=== PATIENT | female | born 1985 | race Caucasian/White ===

== ENCOUNTER 2017-08-12 08:31 | Emergency (ER) | payer OTHER ==
[~2017-08-12] VITALS: Ht 152.4 cm; Wt 55.8 kg
[~2017-08-12 08:31] MED LIST: IBUPROFEN800 MG PO; JUNEL1 EAC1 PO; PHENERGAN-CODE120 ML PO; PRENATAL TABLE1 EAC3 PO; ZOFRAN4 MG PO; ZYRTEC10 M2 PO
[2017-08-12 09:19] LABS: HEMATOCRIT 41.6 % (36.0-46.0); HEMOGLOBIN 14.6 G/DL (11.9-15.5); MCH 33.2 PG (29.0-34.0); MCHC 35.1 G/DL (30.0-36.0); MCV 94.5 FL (83-99); PLATELET COUNT 246 K/uL (156-360); RBC DIS.WIDTH-CV 11.8 % (11.8-14.6); RBC DIS.WIDTH-SD 41.1 % (39-53); WHITE BLOOD COUNT 5.6 K/uL (4.1-10.2)
[2017-08-12 09:26] LABS: D-DIMER ELISA < 150.00 ng/mLDDU (<230)
[2017-08-12 09:28] LABS: CHLORIDE 108 mEq/L (99-109); POTASSIUM 4.3 mEq/L (3.7-5.4); SODIUM 141 mEq/L (136-147)
[2017-08-12 09:30] LABS: GLUCOSE 98 mg/dL (70-99)
[2017-08-12 09:34] LABS: CREATININE 0.8 mg/dL (0.6-1.3); GFR ESTIMATE (CALCULATED) > 59 mL/min/
[2017-08-12 09:35] LABS: UREA NITROGEN (BUN) 10 mg/dL (9-23)
[2017-08-12 09:40] LABS: TROP-I INTERPRETATION NEGATIVE; TROPONIN-I < 0.01 ng/mL (0.0-0.30)
[2017-08-12 09:42] LABS: QUANTITATIVE HCG < 4.0 MIU/ML
[2017-08-12 10:35] LABS: THYROTROPIN (TSH) 2.8 MIU/L (0.4-5.5)
[2017-08-12 10:54] VITALS: BP 123/86
== END 2017-08-12 10:55 | disposition home or self-care (01) ==
LOC: EME 08:31
PROVIDERS: Nurse Practitioner Family
DX: R06.09 Other forms of dyspnea (principal); R00.2 Palpitations; R00.1 Bradycardia, unspecified; J45.909 Unspecified asthma, uncomplicated; K21.9 Gastro-esophageal reflux disease without esophagitis
CPT/HCPCS: 71046; 80048; 84443; 84484; 84702; 85027; 85379; 93005; 99281; 99285

== ENCOUNTER 2017-08-16 20:30 | Emergency (ER) | payer OTHER ==
[~2017-08-16] VITALS: Ht 152.4 cm; Wt 57.7 kg
[2017-08-16 21:10] LABS: HEMOGLOBIN 14.3 G/DL (11.9-15.5); MCH 33.4 PG (29.0-34.0); MCHC 35.8 G/DL (30.0-36.0); MCV 93.5 FL (83-99); PLATELET COUNT 267 K/uL (156-360); RBC DIS.WIDTH-CV 11.8 % (11.8-14.6); RBC DIS.WIDTH-SD 40.6 % (39-53); RED BLOOD COUNT 4.28 M/uL (3.80-5.20); WHITE BLOOD COUNT 7.1 K/uL (4.1-10.2)
[2017-08-16 21:21] LABS: CHLORIDE 108 mEq/L (99-109); POTASSIUM 3.8 mEq/L (3.7-5.4); SODIUM 141 mEq/L (136-147)
[2017-08-16 21:23] LABS: GLUCOSE 109 mg/dL (70-99)
[2017-08-16 21:27] LABS: CREATININE 0.8 mg/dL (0.6-1.3); GFR ESTIMATE (CALCULATED) > 59 mL/min/
[2017-08-16 21:28] LABS: UREA NITROGEN (BUN) 13 mg/dL (9-23)
[2017-08-16 21:33] LABS: TROP-I INTERPRETATION NEGATIVE; TROPONIN-I < 0.01 ng/mL (0.0-0.30)
[2017-08-17 00:12] LABS: TROP-I INTERPRETATION NEGATIVE; TROPONIN-I < 0.01 ng/mL (0.0-0.30)
[2017-08-17 00:27] VITALS: BP 109/75
== END 2017-08-17 00:27 | disposition home or self-care (01) ==
LOC: EME 20:30
PROVIDERS: Physician Assistant
DX: R00.2 Palpitations (principal); J45.909 Unspecified asthma, uncomplicated; K21.9 Gastro-esophageal reflux disease without esophagitis
CPT/HCPCS: 71046; 80048; 84484; 85027; 93005; 99281; 99284